=== PATIENT | male | born 1940 | race Caucasian/White ===

== ENCOUNTER → 2018-06-17 | Outpatient (CLI) | payer OTHER ==
[~2018-06-17] VITALS: Ht 167.6 cm; Wt 68.6 kg
[~2018-06-17] MED LIST: CARVEDILOL12.5 MG PO; DEPAKOTE ER500 MG PO; DOFETILIDE125 MCG PO; ELIQUIS5 MG PO; IMDUR 60 MG TAB60 M1 PO; LISINOPRIL10 MG PO; LYRICA 50 MG50 MG PO; MS CONTIN 30 MG30 MG PO; PROTONIX40 M1 PO; SYNTHROID100 MC1 PO; ZOLOFT50 MG PO
[2018-06-17 10:07] VITALS: BP 122/71
== END ==
LOC: PAIN 07:32
DX: M25.511 Pain in right shoulder (principal); G89.29 Other chronic pain; E11.22 Type 2 diabetes mellitus with diabetic chronic kidney disease; N18.2 Chronic kidney disease, stage 2 (mild)